=== PATIENT | female | born 1945 | race Caucasian/White ===

== ENCOUNTER 2021-10-14 12:12 | Inpatient (IN) | payer MEDICARE, OTHER ==
[~2021-10-14] VITALS: Ht 165.1 cm; Wt 78.9 kg
[2021-10-14] MEDS ORDERED: MELATONIN 3 MG TABLET PO PRN (17:00)
[2021-10-14] MEDS ORDERED: CETIRIZINE HCL 10 MG TABLET PO PRN (17:00)
[2021-10-14] MEDS ORDERED: DEXTROSE 50%-WATER 25 GM/50 ML SYRINGE IVP PRN (17:00)
[2021-10-14] MEDS ORDERED: OxyCODONE HCL 5 MG IR TABLET PO PRN (17:00)
[2021-10-14] MEDS ORDERED: ACETAMINOPHEN 325 MG TABLET PO PRN (17:00)
[2021-10-14 17:17] VITALS: BP 131/75
[2021-10-14 19:50] LABS: GLUCOMETER DEV NAME(LOC) 2WR.1C; GLUCOSE,POINT OF CARE 128 MG/DL (70-110)
[2021-10-14] MEDS: ROSUVASTATIN CALCIUM 20 MG TABLET PO SCH (20:33)
[2021-10-14] MEDS: DOCUSATE SODIUM 100 MG CAPSULE PO SCH (20:33)
[2021-10-14] MEDS: SENNA 187 MG TABLET PO SCH ×2 (20:33→21:00)
[2021-10-14] MEDS: DEXAMETHASONE 2 MG TABLET PO SCH (20:33)
[2021-10-14] MEDS: ETHYL ALCOHOL 62% ANTISEPTIC NASAL SANITIZER 0.6 ML AMPUL NASAL SCH ×2 (20:33→21:00)
[2021-10-14] MEDS: LevETIRAcetam 500 MG TABLET PO SCH (20:33)
[2021-10-14] MEDS: INSULIN LISPRO 100 UNITS/ML SQ PRN (20:35)
[2021-10-14 22:41] LABS: GLUCOMETER DEV NAME(LOC) 2WR.1C; GLUCOSE,POINT OF CARE 239 MG/DL (70-110)
[2021-10-14 23:46] VITALS: BP 131/76
[2021-10-15] MEDS: LEVOTHYROXINE SODIUM 75 MCG TABLET PO SCH (06:22)
[2021-10-15] MEDS: PANTOPRAZOLE SODIUM 40 MG DR TABLET PO SCH (06:25)
[2021-10-15 06:32] LABS: EOSINOPHILS % (AUTO) 0 % (1.0-6.0); HEMATOCRIT 32.1 % (36-46); HEMOGLOBIN 10.6 g/dL (12.0-16.0); LYMPHOCYTES # (AUTO) 2.1 K/uL (1.0-4.8); MEAN CORPUSCULAR HEMOGLOBIN 31.4 pg (26.0-34.0); MEAN CORPUSCULAR HGB CONC 32.9 G/dL (31.0-37.0); MEAN CORPUSCULAR VOLUME 96 fL (80-100); MONOCYTES # (AUTO) 1.5 K/uL (0.1-1.0); MONOCYTES % (AUTO) 6.9 % (2.0-9.0); NEUTROPHILS # (AUTO) 17.7 K/uL (1.8-7.7); NEUTROPHILS % (AUTO) 83.1 % (40.0-70.0); PLATELET COUNT (AUTO) 143 K/uL (150-450); RED BLOOD CELL COUNT(AUTO) 3.36 MIL/uL (4.00-5.20); RED CELL DISTRIBUTION WIDTH 12.4 % (11.5-14.5)
[2021-10-15 06:58] LABS: ALANINE AMINOTRANSFERASE 55 U/L (12-78); ALBUMIN 3.2 g/dL (3.4-5.0); ALKALINE PHOSPHATASE 49 U/L (46-116); ANION GAP 11 mmol/L (8-16); ASPARTATE AMINOTRANSFERASE 29 U/L (15-37); BILIRUBIN,TOTAL 0.5 mg/dL (0.1-1.0); CALCIUM, TOTAL 8.9 mg/dL (8.8-10.5); CARBON DIOXIDE 28 mmol/L (22-29); CHLORIDE 104 mmol/L (98-107); CREATININE 0.82 mg/dL (0.60-1.30); GLUCOSE,RANDOM 168 mg/dL (70-110); POTASSIUM 3.4 mmol/L (3.5-5.1); SODIUM SERUM 143 mmol/L (136-145); TOTAL PROTEIN, SERUM 6.9 g/dL (6.4-8.2); UREA NITROGEN, BLOOD 23 mg/dL (7-18)
[2021-10-15 06:59] LABS: GLOMERULAR FILTR. RATE CALC > 60 mL/min (>60)
[2021-10-15 07:30] VITALS: BP 134/55
[2021-10-15] MEDS: ETHYL ALCOHOL 62% ANTISEPTIC NASAL SANITIZER 0.6 ML AMPUL NASAL SCH ×2 (08:06→20:18)
[2021-10-15] MEDS: DOCUSATE SODIUM 100 MG CAPSULE PO SCH ×2 (08:12→20:18)
[2021-10-15 08:16] LABS: GLUCOMETER DEV NAME(LOC) 2WR.2B; GLUCOSE,POINT OF CARE 117 MG/DL (70-110)
[2021-10-15] MEDS: NIACIN 500 MG TABLET PO SCH (08:16)
[2021-10-15] MEDS: FERROUS SULFATE 325 MG EC TABLET PO SCH (08:16)
[2021-10-15] MEDS: LOSARTAN POTASSIUM 50 MG TABLET PO SCH (08:18)
[2021-10-15] MEDS: DEXAMETHASONE 2 MG TABLET PO SCH ×3 (08:20→20:12)
[2021-10-15] MEDS: LEVOFLOXACIN 750 MG TABLET PO SCH (08:22)
[2021-10-15] MEDS: TAMOXIFEN CITRATE 10 MG TABLET PO SCH (08:24)
[2021-10-15] MEDS: AmLODIPine BESYLATE 10 MG TABLET PO SCH (08:25)
[2021-10-15] MEDS: LevETIRAcetam 500 MG TABLET PO SCH ×2 (08:30→20:11)
[2021-10-15 12:36] LABS: GLUCOMETER DEV NAME(LOC) 2WR.1C; GLUCOSE,POINT OF CARE 150 MG/DL (70-110)
[2021-10-15 12:36] LABS: GLUCOMETER DEV NAME(LOC) 2WR.2B; GLUCOSE,POINT OF CARE 118 MG/DL (70-110)
[2021-10-15 16:25] VITALS: BP 108/46
[2021-10-15] MEDS: INSULIN LISPRO 100 UNITS/ML SQ PRN ×2 (17:38→20:17)
[2021-10-15 18:11] LABS: GLUCOMETER DEV NAME(LOC) 2WR.2B; GLUCOSE,POINT OF CARE 166 MG/DL (70-110)
[2021-10-15] MEDS: ROSUVASTATIN CALCIUM 20 MG TABLET PO SCH (20:11)
[2021-10-15] MEDS: SENNA 187 MG TABLET PO SCH (20:18)
[2021-10-15 20:46] LABS: GLUCOMETER DEV NAME(LOC) 2WR.2B; GLUCOSE,POINT OF CARE 198 MG/DL (70-110)
[2021-10-15 23:22] VITALS: BP 110/73
[2021-10-16 05:56] LABS: GLUCOMETER DEV NAME(LOC) 2WR.1C; GLUCOSE,POINT OF CARE 199 MG/DL (70-110)
[2021-10-16] MEDS: PANTOPRAZOLE SODIUM 40 MG DR TABLET PO SCH (06:13)
[2021-10-16] MEDS: LEVOTHYROXINE SODIUM 75 MCG TABLET PO SCH (06:14)
[2021-10-16 08:00] VITALS: BP 145/79
[2021-10-16] MEDS: AmLODIPine BESYLATE 10 MG TABLET PO SCH (08:00)
[2021-10-16] MEDS: LevETIRAcetam 500 MG TABLET PO SCH ×2 (08:00→21:01)
[2021-10-16] MEDS: FERROUS SULFATE 325 MG EC TABLET PO SCH (08:00)
[2021-10-16] MEDS: NIACIN 500 MG TABLET PO SCH (08:00)
[2021-10-16] MEDS: DOCUSATE SODIUM 100 MG CAPSULE PO SCH ×2 (08:00→20:57)
[2021-10-16] MEDS: LEVOFLOXACIN 750 MG TABLET PO SCH (08:01)
[2021-10-16] MEDS: TAMOXIFEN CITRATE 10 MG TABLET PO SCH (08:02)
[2021-10-16] MEDS: LOSARTAN POTASSIUM 50 MG TABLET PO SCH (08:02)
[2021-10-16] MEDS: INSULIN LISPRO 100 UNITS/ML SQ PRN ×4 (08:32→21:13)
[2021-10-16] MEDS: ETHYL ALCOHOL 62% ANTISEPTIC NASAL SANITIZER 0.6 ML AMPUL NASAL SCH ×2 (08:35→20:55)
[2021-10-16] MEDS: DEXAMETHASONE 2 MG TABLET PO SCH ×2 (10:02→21:00)
[2021-10-16 11:46] LABS: GLUCOMETER DEV NAME(LOC) 2WR.2B; GLUCOSE,POINT OF CARE 165 MG/DL (70-110)
[2021-10-16 16:00] VITALS: BP 123/60
[2021-10-16 18:33] LABS: GLUCOMETER DEV NAME(LOC) 2WR.1C; GLUCOSE,POINT OF CARE 176 MG/DL (70-110)
[2021-10-16] MEDS: ROSUVASTATIN CALCIUM 20 MG TABLET PO SCH (20:58)
[2021-10-16] MEDS: SENNA 187 MG TABLET PO SCH (21:03)
[2021-10-16 21:31] LABS: GLUCOMETER DEV NAME(LOC) 2WR.1C; GLUCOSE,POINT OF CARE 200 MG/DL (70-110)
[2021-10-17 00:29] VITALS: BP 135/63
[2021-10-17] MEDS: LEVOTHYROXINE SODIUM 75 MCG TABLET PO SCH (06:02)
[2021-10-17] MEDS: PANTOPRAZOLE SODIUM 40 MG DR TABLET PO SCH (06:05)
[2021-10-17 06:51] LABS: GLUCOMETER DEV NAME(LOC) 2WR.1C; GLUCOSE,POINT OF CARE 166 MG/DL (70-110)
[2021-10-17 08:05] VITALS: BP 141/59
[2021-10-17] MEDS: FERROUS SULFATE 325 MG EC TABLET PO SCH (08:18)
[2021-10-17] MEDS: NIACIN 500 MG TABLET PO SCH (08:19)
[2021-10-17] MEDS: ETHYL ALCOHOL 62% ANTISEPTIC NASAL SANITIZER 0.6 ML AMPUL NASAL SCH ×2 (08:20→20:02)
[2021-10-17] MEDS: DOCUSATE SODIUM 100 MG CAPSULE PO SCH ×2 (08:20→20:03)
[2021-10-17] MEDS: LOSARTAN POTASSIUM 50 MG TABLET PO SCH (08:22)
[2021-10-17] MEDS: DEXAMETHASONE 2 MG TABLET PO SCH (08:23)
[2021-10-17] MEDS: AmLODIPine BESYLATE 10 MG TABLET PO SCH (08:24)
[2021-10-17] MEDS: LEVOFLOXACIN 750 MG TABLET PO SCH (08:24)
[2021-10-17] MEDS: LevETIRAcetam 500 MG TABLET PO SCH ×2 (08:25→20:03)
[2021-10-17] MEDS: TAMOXIFEN CITRATE 10 MG TABLET PO SCH (08:27)
[2021-10-17] MEDS ORDERED: PANT-31 PO (13:14)
[2021-10-17] MEDS ORDERED: CETI-450 PO (13:14)
[2021-10-17] MEDS ORDERED: TAMO10 PO (13:14)
[2021-10-17] MEDS ORDERED: ROSU20TA73 PO (13:14)
[2021-10-17] MEDS ORDERED: LEVE500T8 PO (13:14)
[2021-10-17] MEDS ORDERED: NIAC500T7 PO (13:14)
[2021-10-17] MEDS ORDERED: FERR-72 PO (13:14)
[2021-10-17] MEDS ORDERED: SENN-187 PO (13:14)
[2021-10-17] MEDS ORDERED: LOSA-382 PO (13:14)
[2021-10-17] MEDS ORDERED: LEVO750T68 PO (13:14)
[2021-10-17] MEDS ORDERED: AMLO-258 PO (13:14)
[2021-10-17] MEDS ORDERED: LEVO75 PO (13:14)
[2021-10-17 16:05] VITALS: BP 119/40
[2021-10-17] MEDS: INSULIN LISPRO 100 UNITS/ML SQ PRN ×2 (16:49→20:17)
[2021-10-17 17:06] LABS: GLUCOMETER DEV NAME(LOC) 2WR.2B; GLUCOSE,POINT OF CARE 177 MG/DL (70-110)
[2021-10-17] MEDS: SENNA 187 MG TABLET PO SCH (20:04)
[2021-10-17] MEDS: ROSUVASTATIN CALCIUM 20 MG TABLET PO SCH (20:04)
[2021-10-17 20:36] LABS: GLUCOMETER DEV NAME(LOC) 2WR.2B; GLUCOSE,POINT OF CARE 261 MG/DL (70-110)
[2021-10-17] MEDS ORDERED: DEXAMETHASONE 1 MG TABLET PO SCH (21:00)
[2021-10-18 00:25] VITALS: BP 133/65
[2021-10-18 05:26] LABS: GLUCOMETER DEV NAME(LOC) 2WR.1C; GLUCOSE,POINT OF CARE 133 MG/DL (70-110)
[2021-10-18] MEDS: PANTOPRAZOLE SODIUM 40 MG DR TABLET PO SCH (06:09)
[2021-10-18] MEDS: LEVOTHYROXINE SODIUM 75 MCG TABLET PO SCH (06:09)
[2021-10-18] MEDS: TAMOXIFEN CITRATE 10 MG TABLET PO SCH (07:51)
[2021-10-18] MEDS: LEVOFLOXACIN 750 MG TABLET PO SCH (07:51)
[2021-10-18] MEDS: LevETIRAcetam 500 MG TABLET PO SCH (07:52)
[2021-10-18] MEDS: LOSARTAN POTASSIUM 50 MG TABLET PO SCH (07:52)
[2021-10-18] MEDS: FERROUS SULFATE 325 MG EC TABLET PO SCH (07:52)
[2021-10-18] MEDS: DOCUSATE SODIUM 100 MG CAPSULE PO SCH (07:53)
[2021-10-18] MEDS: ETHYL ALCOHOL 62% ANTISEPTIC NASAL SANITIZER 0.6 ML AMPUL NASAL SCH (07:53)
[2021-10-18] MEDS: NIACIN 500 MG TABLET PO SCH (08:32)
[2021-10-18] MEDS: AmLODIPine BESYLATE 10 MG TABLET PO SCH (08:34)
[2021-10-18] MEDS ORDERED: DEXAMETHASONE 1 MG TABLET PO SCH (09:00)
[2021-10-18 09:25] VITALS: BP 118/54
[2021-10-18 16:15] LABS: GLUCOMETER DEV NAME(LOC) 2WR.2B; GLUCOSE,POINT OF CARE 108 MG/DL (70-110)
== END 2021-10-18 13:00 | disposition home or self-care (01) | DRG 55 ==
LOC: 2WR 14:05
PROVIDERS: ADMIT Physical Medicine & Rehabilitation; ATTEND Physical Medicine & Rehabilitation
DX: D32.0 Benign neoplasm of cerebral meninges (principal); N39.0 Urinary tract infection, site not specified; R53.81 Other malaise; F43.20 Adjustment disorder, unspecified; H91.90 Unspecified hearing loss, unspecified ear; E78.5 Hyperlipidemia, unspecified; D64.9 Anemia, unspecified; E03.9 Hypothyroidism, unspecified; R43.0 Anosmia; Z85.3 Personal history of malignant neoplasm of breast
CPT/HCPCS: 80053; 82962; 85025; 87081; 92507; 92523; 93970; 97112; 97116; 97163; 97166; 97530; 97535; 99366; J8540; Q9967